=== PATIENT | male | born 1960 ===

== ENCOUNTER 2019-01-24 14:13 | Outpatient (CLI) | payer OTHER | END 2019-01-24 14:17 | disposition home or self-care (01) | LOC: RAD 14:13 | DX: R05 Cough (principal) ==

== ENCOUNTER 2019-11-09 15:41 | Inpatient (IN) | payer OTHER ==
[~2019-11-09] VITALS: Ht 180.3 cm; Wt 104.3 kg
[2019-11-09] MEDS ORDERED: CATAPRES0.1 MG (16:33)
[2019-11-09] MEDS ORDERED: TOPROL XL50 M1 (16:34)
[2019-11-09] MEDS ORDERED: MATZIM LA240 MG (16:34)
[2019-11-09] MEDS ORDERED: ELIQUIS2.5 MG (16:35)
[2019-11-09] MEDS ORDERED: SEVELAMER CARB800 MG (16:35)
--- NOTE | 2019-11-09 16:35 | NUR ---
PTE SE RECIBE POR HEAR PALPITATIONS REFIERE PTE.
--- NOTE | 2019-11-09 17:08 | NUR ---
PT ALERTA Y ORIENTADO X3 ESFERAS SE RECIBE DESDE TRAIGE A UNIDAD DE CRITICO. SE UBICA EN CAMA CON BARANDAS ELEVADAS Y FRENOS COLOCADOS. SE LE ORIENTA SOBRE TX Y PROTOCOLOS EN LA UNIDAD. EKG PRESENTA AFIB CON RITMO 144H. PRESENTADO Y EVALUADO POR DR LORD. SE CHRISTINA MUESTRAS DE PAT Y VENOPUNCION CON TECNICAS ASEPTICAS. PT TOLERA TX, SE MANTIENE BAJO OBSERVACION POR CAMBIOS EN GALE, CONECTADO A MONITOR CARDIACO Y SATUROMETRO DE PULSO.
--- NOTE | 2019-11-09 17:10 | NUR ---
PATIENT IS BROUGHT IN WALKING IN TO CRITICAL CARE UNIT ALERT AND ORIENTED X3. PATIENT SAYS THAT HE DIDN'T TAKE HIS METROPOLOL 50MG PO FOR TWO DAYS AND FEELS HEART PALPITATIONS. PATIENT IS PLACED IN BED WITH RAILINGS UP AND IS CONNECTED TO BOTTOM LINER WITH OXIMETRY. IV LINE IS OPENED ON PATIENT'S RIGHT ARM AND BLOOD SAMPLES ARE TAKEN IN ORDER TO COMPLETE LABS. SALINE LOCK IS PLACED ON IV LINE.
== END 2019-11-11 14:28 | disposition home or self-care (01) | DRG 308 ==
LOC: ER 15:41 → SEC-K 20:29 → SURG 21:36
PROVIDERS: ADMIT Internal Medicine; ATTEND Internal Medicine
PROC: 4A12X4Z Monitoring of Cardiac Electrical Activity, External Approach (ICD-10-PCS; 2019-11-09)
PROC: B24BZZZ Ultrasonography of Heart with Aorta (ICD-10-PCS; principal; 2019-11-10)
DX: I48.20 Chronic atrial fibrillation, unspecified (principal); N18.6 End stage renal disease; I13.2 Hypertensive heart and chronic kidney disease with heart failure and with stage 5 chronic kidney disease, or end stage renal disease; Z79.01 Long term (current) use of anticoagulants; I50.9 Heart failure, unspecified; Z99.2 Dependence on renal dialysis; Z79.4 Long term (current) use of insulin; D64.9 Anemia, unspecified